=== PATIENT | male | born 1995 | race African-American/Black ===

== ENCOUNTER 2023-09-03 11:06 | Emergency (ER) | payer MEDICAID ==
[~2023-09-03] VITALS: Ht 172.7 cm; Wt 57.0 kg
[2023-09-03 11:24] VITALS: TEMP 98.3; O2SAT 97
[2023-09-03] MEDS: CEFTRIAXONE SODIUM 1G VIAL IM SCH (13:02)
[2023-09-03 13:03] VITALS: BP 119/70; PULSE 78; RESP 12
[2023-09-03] MEDS: LIDOCAINE HCL/EPINEPHRINE 1%-EPI 1:100,000 20 ML VIAL INFIL ONE (13:03)
[2023-09-03] MEDS: LIDOCAINE HCL 1% 20ML VIAL (Pyxis) INJ INFIL SCH (13:03)
[2023-09-03] MEDS: KETOROLAC 60MG/2ML VIAL IM SCH (13:03)
[2023-09-03] MEDS ORDERED: AMOX1TAB16 MT (13:15)
[2023-09-03] MEDS ORDERED: SULF1TAB48 MT (13:15)
[2023-09-03] MEDS ORDERED: NAPR-681 PO (13:15)
== END 2023-09-03 13:26 | disposition home or self-care (01) ==
LOC: ER 12:16
DX: K13.0 Diseases of lips (principal)
CPT/HCPCS: 96372; 99284; J0696; J1885; J3490 ×2; Z7610 ×2

== ENCOUNTER 2023-09-23 16:44 | Emergency (ER) | payer MEDICAID ==
[~2023-09-23] VITALS: Ht 170.2 cm; Wt 56.0 kg
[~2023-09-23 16:44] MED LIST: AMOX1TAB16 MT; NAPR-681 PO; SULF1TAB48 MT
[2023-09-23 16:54] VITALS: O2SAT 99
[2023-09-23] MEDS ORDERED: IBUP-1523 MT (23:19)
[2023-09-23] MEDS ORDERED: AMOX1TAB16 MT (23:19)
[2023-09-23 23:32] VITALS: BP 110/70; PULSE 70; RESP 15; TEMP 98.8
== END 2023-09-23 23:35 | disposition home or self-care (01) ==
LOC: ER 16:44
DX: K13.0 Diseases of lips (principal)
CPT/HCPCS: 10060; 99283; Z7610 ×2